=== PATIENT | female | born 1950 | race African-American/Black ===

== ENCOUNTER → 2016-11-05 | Outpatient (CLI) | payer BC ==
--- NOTE | 2016-11-10 07:12 | MM ---
Reason for exam: screening (asymptomatic). Last mammogram was performed 1 year and 1 month ago. History: Patient is postmenopausal. Family history of breast cancer in aunt at age 55. Physical Findings: A clinical breast exam by your physician is recommended on an annual basis and results should be correlated with mammographic findings. MG Screening Mammo w CAD Bilateral CC and MLO view(s) were taken. Prior study comparison: October 13, 2015, bilateral MG screening mammo w CAD. April 05, 2014, bilateral MG screening mammo w CAD. The breast tissue is heterogeneously dense. This may lower the sensitivity of mammography. No significant changes when compared with prior studies. ASSESSMENT: Benign, BI-RAD 2 RECOMMENDATION: Routine screening mammogram of both breasts in 1 year.
== END | disposition home or self-care (01) ==
LOC: RADMAMWWP 08:10
PROVIDERS: ATTEND Family Medicine
DX: Z12.31 Encounter for screening mammogram for malignant neoplasm of breast (principal)

== ENCOUNTER 2017-07-01 06:49 | Day surgery (SDC) | payer MEDICARE, BC ==
[2017-06-30 08:49] VITALS: BMI 26.6
[2017-07-01 07:16] VITALS: TEMP 97.8
[2017-07-01] MEDS ORDERED: LACTATED RINGERS 1,000 ML IV ONE ×2 (07:17)
[2017-07-01] MEDS ORDERED: PROPOFOL 10 MG/ML 20 ML VIAL IV ONE (07:22)
--- NOTE | 2017-07-01 07:41 | P.PCN ---
Date of Procedure: 07/01/17 Procedure(s) Performed: BRIEF HISTORY: Patient is a 67-year-old [place] -[place] female, scheduled for an elective colonoscopy as a part of screening for colorectal neoplasia. PROCEDURE PERFORMED: Colonoscopy. PREOPERATIVE DIAGNOSIS: Screening for colon cancer. IV sedation per Anesthesia. PROCEDURE: After informed consent was obtained, the patient, was brought into the endoscopy unit. IV sedation was administered by Anesthesia under continuous monitoring. Digital rectal examination was normal. Initially the Olympus CF- 160 flexible video colonoscope was then inserted in the rectum, gradually advanced into the cecum without any difficulty. Careful examination was performed as the scope was gradually being withdrawn. Ileocecal valve and the appendiceal orifice were visualized and appeared normal. Prep was excellent. Mucosa of the cecum, ascending colon, transverse colon, descending colon, sigmoid colon, and rectum appeared normal. Retroflexion was performed in the rectum and no lesions were seen. The patient tolerated the procedure well. IMPRESSION: Normal-appearing colon from rectum to cecum with no evidence of colorectal neoplasia . RECOMMENDATIONS: Findings of this examination were discussed with the patient as well as a family. She was advised to have a repeat screening colonoscopy in 10 years.
[2017-07-01 07:48] VITALS: RESP 16
[2017-07-01 07:57] LABS: Glucose,Whole Blood 105 mg/dL (75-99)
[2017-07-01 08:08] VITALS: BP 123/60; PULSE 80
== END 2017-07-01 08:31 | disposition home or self-care (01) ==
LOC: ORWHC2ENDO 06:49
PROVIDERS: ATTEND Internal Medicine Gastroenterology
DX: Z12.11 Encounter for screening for malignant neoplasm of colon (principal); I10 Essential (primary) hypertension; E78.5 Hyperlipidemia, unspecified; E11.9 Type 2 diabetes mellitus without complications; Z79.84 Long term (current) use of oral hypoglycemic drugs
CPT/HCPCS: J2704; G0121

== ENCOUNTER → 2018-01-30 | Outpatient (CLI) | payer MEDICARE ==
--- NOTE | 2018-01-31 14:45 | MM ---
Reason for exam: screening (asymptomatic). Last mammogram was performed 1 year and 3 months ago. History: Patient is postmenopausal. Family history of breast cancer in aunt at age 55. Took hormonal contraceptives for 15 years. Physical Findings: A clinical breast exam by your physician is recommended on an annual basis and results should be correlated with mammographic findings. MG 3D Screening Mammo W/Cad Bilateral CC and MLO view(s) were taken. Prior study comparison: November 05, 2016, bilateral MG screening mammo w CAD. October 13, 2015, bilateral MG screening mammo w CAD. The breast tissue is heterogeneously dense. This may lower the sensitivity of mammography. Stable vascular calcifications. There is no discrete abnormality. No significant changes when compared with prior studies. ASSESSMENT: Benign, BI-RAD 2 RECOMMENDATION: Routine screening mammogram of both breasts in 1 year.
== END | disposition home or self-care (01) ==
LOC: RADMAMWWP 07:36
PROVIDERS: ATTEND Family Medicine
DX: Z12.31 Encounter for screening mammogram for malignant neoplasm of breast (principal)
CPT/HCPCS: 77063; 77067

== ENCOUNTER → 2019-11-19 | Outpatient (CLI) | payer MEDICARE ==
--- NOTE | 2019-11-19 11:38 | BD ---
EXAMINATION TYPE: Axial Bone Density DATE OF EXAM: 11/19/2019 COMPARISON: DEXA 2016 CLINICAL HISTORY: Postmenopausal female Height: 5 FT 3 IN Weight: 171 FRAX RISK QUESTIONS: Alcohol (3 or more units per day): NO Family History (Parent hip fracture): NO Glucocorticoids (More than 3mos): NO (Ex: prednisone, prednisolone, methylprednisolone, dexamethasone, and hydrocortisone). History of Fracture in Adulthood: NO Secondary Osteoporosis: 1. Type 1 Diabetes: NO 2. Hyperthyroidism: NO 3. Menopause before 45: NO 4. Malnutrition: NO 5. Chronic liver disease: NO Rheumatoid Arthritis: NO Current Tobacco Use: NO RISK FACTORS HISTORY OF: Family History of Osteoporosis: NO Active: YES Postmenopausal woman: AROUND AGE 47 MEDICATIONS: Additional Medications: METFORMIN, VIT D Additional History: EXAM MEASUREMENTS: Bone mineral densitometry was performed using the Moblication System. Bone mineral density as measured about the Lumbar spine is: ----- L1-L4(G/cm2): 1.324 T Score Values are as follows: ----- L2: 1.4 ----- L3: 2.2 ----- L4: 0.8 ----- L1-L4: 1.2 Bone mineral density has: INCREASED 2.4 % since study of: 2016 Bone mineral density about the R hip (g/cm2): 0.909 Bone mineral density about the L hip (g/cm2): 0.902 T Score values are as follows: -----R Neck: -0.9 -----L Neck: -1.0 -----R Total: -0.9 -----L Total: -1.2 Bone mineral density has: DECREASED -4.0 % since study of: 2016 IMPRESSION: Osteopenia (T Score between -2.5 and -1) is now present in the left hip. There is slightly increased risk of fracture and the patient may be considered for treatment. Re-Screen 2-5 years. NOTE: T-SCORE=SD OF THE YOUNG ADULT MEAN.
--- NOTE | 2019-11-21 11:08 | MM ---
Reason for exam: screening (asymptomatic). Last mammogram was performed 1 year and 10 months ago. History: Patient is postmenopausal. Family history of breast cancer in aunt at age 55. Took hormonal contraceptives for 15 years. Physical Findings: A clinical breast exam by your physician is recommended on an annual basis and results should be correlated with mammographic findings. MG 3D Screening Mammo W/Cad Bilateral CC and MLO view(s) were taken. Prior study comparison: January 30, 2018, bilateral MG 3d screening mammo w/cad. November 05, 2016, bilateral MG screening mammo w CAD. The breast tissue is heterogeneously dense. This may lower the sensitivity of mammography. Benign vascular calcifications bilaterally. No significant changes when compared with prior studies. ASSESSMENT: Benign, BI-RAD 2 RECOMMENDATION: Routine screening mammogram of both breasts in 1 year.
== END | disposition home or self-care (01) ==
LOC: RADMAMWWP 08:27
PROVIDERS: ATTEND Family Medicine
DX: Z12.31 Encounter for screening mammogram for malignant neoplasm of breast (principal); M85.852 Other specified disorders of bone density and structure, left thigh; Z78.0 Asymptomatic menopausal state
CPT/HCPCS: 77063; 77067; 77080

== ENCOUNTER → 2021-10-09 | Outpatient (CLI) | payer MEDICARE ==
--- NOTE | 2021-10-12 10:50 | MM ---
Reason for Exam: Screening (asymptomatic). Last mammogram was performed 1 year(s) and 11 month(s) ago. Patient History: Menarche at age 15. First Full-Term at age 19. Postmenopausal. Patient used Hormonal Contraceptives for 15 years. Maternal aunt had breast cancer, age 55. Risk Values: Anna 5 year model risk: 1.2%. NCI Lifetime model risk: 3.9%. Prior Study Comparison: 11/05/2016 Bilateral Screening Mammogram, [facility]. 01/30/2018 Bilateral Screening Mammogram, [facility]. 11/19/2019 Bilateral Screening Mammogram, [facility]. Tissue Density: The breast tissue is heterogeneously dense. This may lower the sensitivity of mammography. Findings: Analyzed By CAD. Pattern appears stable. Focal asymmetry may be within the left upper breast with diminished parenchymal tissue density in this region. No suspicious tomographic or craniocaudal view changes identified. No suspicious groups of microcalcifications, spiculated or lobular masses, architectural distortion or other secondary signs of malignancy are mammographically apparent. Overall Assessment: Benign, BI-RAD 2 Management: Screening Mammogram of both breasts in 1 year. A negative mammogram report should not preclude additional follow up of suspicious palpable abnormalities. Patient should continue monthly self breast exam. A clinical breast exam by your physician is recommended on an annual basis and results should be correlated with mammographic findings. Electronically signed and approved by: Amador Pat D.O. Radiologis
== END | disposition home or self-care (01) ==
LOC: RADMAMWWP 10:09
PROVIDERS: ATTEND Family Medicine
DX: Z12.31 Encounter for screening mammogram for malignant neoplasm of breast (principal); Z78.0 Asymptomatic menopausal state; Z80.3 Family history of malignant neoplasm of breast
CPT/HCPCS: 77063; 77067

== ENCOUNTER → 2021-12-15 | Outpatient (CLI) | payer MEDICARE ==
--- NOTE | 2021-12-15 12:32 | BD ---
EXAMINATION TYPE: Axial Bone Density DATE OF EXAM: 12/15/2021 COMPARISON: NONE CLINICAL HISTORY: 71 years year old Female. ICD-10 CODE: Z78.0 ASYMPTOMATIC MENOPAUSAL STATE Height: 63 Weight: 196 FRAX RISK QUESTIONS: Secondary Osteoporosis: RISK FACTORS HISTORY OF: Postmenopausal woman: y MEDICATIONS: Additional Medications: diabetes, cholesterol Additional History: EXAM MEASUREMENTS: Bone mineral densitometry was performed using the [employer] System. Bone mineral density as measured about the Lumbar spine is: ----- L1-L4(G/cm2): 1.419 T Score Values are as follows: ----- L1: 0.1 ----- L2: 3.1 ----- L3: 3.5 ----- L4: 0.8 ----- L1-L4: 2.0 Bone mineral density has: Increased 11.9% since study of: 10/13/2015 Bone mineral density about the R hip (g/cm2): 0.896 Bone mineral density about the L hip (g/cm2): 0.875 T Score values are as follows: -----R Neck: -0.9 -----L Neck: -1.0 -----R Total: -0.9 -----L Total: -1.3 Bone mineral density has: Decreased -4.9% since study of: 10/13/2015 FRAX%s: The graph provided illustrates a 3.8% chance for a major osteoporotic fx and a 0.4% chance fo r the hips probability for fx in 10 years time. IMPRESSION: Osteopenia (T Score between -2.5 and -1), borderline. There is slightly increased risk of fracture and the patient may be considered for treatment. Re-Screen 2-5 years. NOTE: T-SCORE=SD OF THE YOUNG ADULT MEAN.
== END | disposition home or self-care (01) ==
LOC: RADBDWWP 10:17
PROVIDERS: ATTEND Family Medicine
DX: M85.89 Other specified disorders of bone density and structure, multiple sites (principal); Z78.0 Asymptomatic menopausal state
CPT/HCPCS: 77080

== ENCOUNTER → 2022-10-20 | Outpatient (CLI) | payer MEDICARE ==
--- NOTE | 2022-10-21 08:16 | XR ---
EXAMINATION TYPE: XR KUB DATE OF EXAM: 10/20/2022 COMPARISON: 04/19/2022 HISTORY: Bilateral renal stones TECHNIQUE: One view abdominal series FINDINGS: The osseous structures are intact. The bowel gas pattern is nonspecific. Osteitis pubis is intact. D egenerative changes of the spine and bilateral hip arthropathy. Calcifications in the pelvis which may be related to uterine fibroid. Right kidney: The remaining 3 calcifications overlying the right kidney mid to lower pole largest lulú suring 4 mm. Left kidney: Approximately 2 calcifications overlying the left kidney the largest were 0.6 mm. Vascular calcifications in pelvis. Calcification overlying the right sacrum is stable but indetermina te IMPRESSION: 1. Stable bilateral nephrolithiasis.
== END | disposition home or self-care (01) ==
LOC: RADXRMAIN 16:02
PROVIDERS: ATTEND Urology
DX: N20.0 Calculus of kidney (principal)
CPT/HCPCS: 74018

== ENCOUNTER 2023-05-12 06:24 | Day surgery (SDC) | payer MEDICARE ==
[~2023-05-12 06:24] MED LIST: ALPRAZolam 0.25 MG TAB PO PRN; ALPRAZolam 0.5 MG TAB PO PRN; ASPIRIN 325 MG TAB PO STA; NITROGLYCERIN SL TABS 0.4 MG TAB SUBLINGUAL PRN; SODIUM CHLORIDE 0.9% 1,000 ML in EMPTY BAG 1 BAG IV SCH
[2023-05-12 07:11] LABS: Glucose,Whole Blood 194 mg/dL (70-110)
[2023-05-12] MEDS: SODIUM CHLORIDE 0.9% 1,000 ML IV ONE (07:17)
[2023-05-12 07:18] LABS: Basophils % (A) 0 %; Eosinophils # (A) 0.2 k/uL (0-0.7); Eosinophils % (A) 3 %; HCT 39.1 % (34.0-46.0); HGB 13.6 gm/dL (11.4-16.0); Lymphocytes # (A) 1.9 k/uL (1.0-4.8); Lymphocytes % (A) 24 %; MCH 31.2 pg (25.0-35.0); MCHC 34.7 g/dL (31.0-37.0); Mean Platelet Volume 8.3; Monocytes # (A) 0.3 k/uL (0-1.0); Monocytes % (A) 4 %; Neutrophils % (A) 66 %; Platelet Count 256 k/uL (150-450); RBC 4.34 m/uL (3.80-5.40); RDW 13.7 % (11.5-15.5); WBC 7.6 k/uL (3.8-10.6)
[2023-05-12] MEDS ORDERED: HEPARIN SODIUM 1,000 UN/ML (10ML VL) ONE (07:22)
[2023-05-12] MEDS ORDERED: fentaNYL (PF) 50 MCG/ML 2 ML AMP ONE (07:22)
[2023-05-12] MEDS ORDERED: LIDOCAINE 1% INJ 10MG/ML (20 ML MDV) ONE (07:23)
[2023-05-12] MEDS ORDERED: VERAPAMIL 2.5 MG/ML 2 ML AMP ONE (07:23)
[2023-05-12 07:33] LABS: African American GFR (CKD) 89 (>60 ml/min/1.73 sqM); Anion Gap 7 mmol/L; Blood Urea Nitrogen 17 mg/dL (7-17); Calcium 9.4 mg/dL (8.4-10.2); Carbon Dioxide 25 mmol/L (22-30); Chloride 106 mmol/L (98-107); Glucose 160 mg/dL (74-99); Non-African American GFR(CKD) 77 (>60 ml/min/1.73 sqM); Sodium 138 mmol/L (137-145)
[2023-05-12] MEDS: LIDOCAINE 1% INJ 10MG/ML (30 ML VIAL-PF) SQ ONE (07:46)
[2023-05-12] MEDS: MIDAZOLAM 2 MG/2 ML VIAL IVP ONE (07:48)
[2023-05-12] MEDS: VERAPAMIL SYRINGE (5 MG/10 ML) INTRAARTER ONE (07:48)
[2023-05-12] MEDS: HEPARIN SODIUM 1,000 UN/ML (10ML VL) IVP ONE (07:50)
[2023-05-12 07:52] VITALS: RESP 16; TEMP 98
[2023-05-12 07:56] LABS: Potassium 5.3 mmol/L (3.5-5.1)
[2023-05-12] MEDS: IOPAMIDOL-370 100ML BTL INTRATHECA ONE (07:59)
[2023-05-12] MEDS ORDERED: RX INFO: IV CONTRAST WAS GIVEN 1 EACH MISC MISCELLANE PRN (08:16)
--- NOTE | 2023-05-12 08:19 | P.PCN ---
Date of Procedure: 05/12/23 Operative Findings: CARDIAC CATHETERIZATION PERFORMING PHYSICIAN: Noe Morgan MD, RPVI PROCEDURE PERFORMED: 1. Selective right and left coronary angiogram 2. Left heart catheterization 3. Ultrasound-guided access of the right radial artery INDICATION: Shortness of breath and abnormal myocardial perfusion imaging stress test in this patient who has multiple risk factors including diabetes COMPLICATION: None APPROACH: Right radial artery LEVEL OF SEDATION: Moderate with a sedation length of 13 minutes PROCEDURE DESCRIPTION: After obtaining an informed consent, the patient was brought to cardiac oil laboratory analyst. Local anesthesia was performed using lidocaine subcutaneously. The right radial artery was cannulated using Seldinger technique, the guidewire passed easily, following that we advanced a 5-Qatari sheath dilator assembly, the wire and dilator were removed and sheath was flushed. Following that, 2 mg of verapamil along with 5000 unit heparin were given. Selective right and left coronary angiogram using a 6-Qatari JR4 and JL 3.5 catheters. Following that we did left heart catheterization using 6-Qatari pigtail catheter. The procedure was completed there was no complication. SELECTIVE CORONARY ANGIOGRAM: The right coronary artery: Large-caliber vessel and a dominant vessel appears to be angiographically normal Left main: Is angiographically normal The left circumflex: Large-caliber vessel nondominant vessel and appears to be angiographically normal as well The left anterior descending artery: Large-caliber vessel. Is angiographically normal with gives rise into a diagonal branch which appears to be angiographically normal HEMODYNAMICS: The LVEDP was 13 mmHg with no significant gradient across aortic valve CONCLUSION: 1. Normal coronary angiogram 2. Normal left-sided filling pressure POSTPROCEDURE MANAGEMENT: Medical treatment
[2023-05-12] MEDS ORDERED: SODIUM CHLORIDE 0.9% 1,000 ML IV SCH (08:30)
[2023-05-12 14:37] VITALS: BP 126/60; PULSE 68
== END 2023-05-12 12:24 | disposition home or self-care (01) ==
LOC: CATHCVL 06:24
PROVIDERS: ATTEND Internal Medicine Interventional Cardiology
DX: I25.10 Atherosclerotic heart disease of native coronary artery without angina pectoris (principal); I10 Essential (primary) hypertension; E78.5 Hyperlipidemia, unspecified; E11.9 Type 2 diabetes mellitus without complications; J44.9 Chronic obstructive pulmonary disease, unspecified; Z82.49 Family history of ischemic heart disease and other diseases of the circulatory system; Z79.84 Long term (current) use of oral hypoglycemic drugs; Z79.899 Other long term (current) drug therapy
CPT/HCPCS: 93458; 76937; 80048; 85025; C1769; C1894; J2250; J2001; J1644; Q9967

== ENCOUNTER → 2023-07-05 | Outpatient (CLI) | payer MEDICARE ==
[2023-07-05 11:59] LABS: African American GFR (CKD) >90 (>60 ml/min/1.73 sqM); Anion Gap 6 mmol/L; Blood Urea Nitrogen 11 mg/dL (7-17); Calcium 9.5 mg/dL (8.4-10.2); Carbon Dioxide 29 mmol/L (22-30); Chloride 106 mmol/L (98-107); Glucose 146 mg/dL (74-99); Non-African American GFR(CKD) 81 (>60 ml/min/1.73 sqM); Potassium 3.9 mmol/L (3.5-5.1); Sodium 141 mmol/L (137-145)
== END | disposition home or self-care (01) ==
LOC: LABWHC1 10:54
PROVIDERS: ATTEND Internal Medicine
DX: R06.02 Shortness of breath (principal)
CPT/HCPCS: 36415; 80048; 85379

== ENCOUNTER → 2023-12-05 | Outpatient (CLI) | payer MEDICARE ==
--- NOTE | 2023-12-06 09:36 | MM ---
Reason for Exam: Screening (asymptomatic). Last screening mammogram was performed 12 month(s) ago. Patient History: Menarche at age 15. First Full-Term at age 19. Postmenopausal. Patient used Hormonal Contraceptives for 15 years. Maternal aunt had breast cancer, age 55. Maternal cousin had breast cancer, age 55. Risk Values: Anna 5 year model risk: 1.8%. NCI Lifetime model risk: 4.6%. Prior Study Comparison: 11/19/2019 Bilateral Screening Mammogram, [facility]. 10/09/2021 Bilateral MG 3D screening mammo w/cad, [facility]. 12/01/2022 Bilateral MG 3D screening mammo w/cad, [facility]. Tissue Density: The breasts are heterogeneously dense, which may obscure small masses. Findings: Analyzed By CAD. There is no suspicious group of microcalcifications or new suspicious mass in either breast. Overall Assessment: Benign, BI-RAD 2 Management: Screening Mammogram of both breasts in 1 year. . Patient should continue monthly self-breast exams. A clinical breast exam by your physician is recommended on an annual basis. This exam should not preclude additional follow-up of suspicious palpable abnormalities. Note on Anna scores and lifetime risk: 1. A Anna score greater than 3% is considered moderate risk. If this is the case, consider specialist referral to assess eligibility for a risk reducing agent. 2. If overall lifetime risk for the development of breast cancer is 20% or higher, the patient may qualify for future screening with alternating mammogram and breast MRI. [facility], , 12/06/2023 9:33 AM. Electronically signed and approved by: Lon Olivarez M.D. Radiologis
== END | disposition home or self-care (01) ==
LOC: RADMAMWWP 11:49
PROVIDERS: ATTEND Family Medicine
DX: Z12.31 Encounter for screening mammogram for malignant neoplasm of breast (principal); R92.333 Mammographic heterogeneous density, bilateral breasts; Z78.0 Asymptomatic menopausal state; Z80.3 Family history of malignant neoplasm of breast
CPT/HCPCS: 77063; 77067

== ENCOUNTER → 2023-12-19 | Outpatient (CLI) | payer MEDICARE ==
--- NOTE | 2023-12-19 10:20 | BD ---
EXAMINATION TYPE: Axial Bone Density DATE OF EXAM: 12/19/2023 CLINICAL HISTORY: 73 years old Female. ICD-10 CODE: Z78.0 ASYMP RAH STATE Height: 62" Weight: 175lbs FRAX RISK QUESTIONS: Alcohol (3 or more units per day): No Family History (Parent hip fracture): No Glucocorticoids (More than 3mos): No (Ex: prednisone, prednisolone, methylprednisolone, dexamethasone, and hydrocortisone). History of Fracture in Adulthood: No Secondary Osteoporosis: 1. Type 1 Diabetes: No 2. Hyperthyroidism: No 3. Menopause before 45: No 4. Malnutrition: No 5. Chronic liver disease: No Rheumatoid Arthritis: No Current Tobacco Use: No RISK FACTORS HISTORY OF: Hip Fracture (Right/Left): No Spine Fracture: No History of Wrist Fracture: No Surgery to Spine/Hip(right/left)/Wrist (right/left): No MEDICATIONS: Thyroid Medications: No Osteoporosis Medications: No EXAM MEASUREMENTS: Bone mineral densitometry was performed using the [employer] System. Bone mineral density as measured about the Lumbar spine is: ----- L1-L4(G/cm2): 1.462 T Score Values are as follows: ----- L1: -0.3 ----- L2: 2.8 ----- L3: 4.7 ----- L4: 2.1 ----- L1-L4: 2.3 Z Score Values are as follows: ----- L1: 0.3 ----- L2: 3.3 ----- L3: 5.2 ----- L4: 2.6 ----- L1-L4: 2.9 Bone mineral density has: increased 3.0% since study of: 12/15/2021 Bone mineral density about the R hip (g/cm2): 0.909 Bone mineral density about the L hip (g/cm2): 0.883 T Score values are as follows: -----R Neck: -0.9 -----L Neck: -0.8 -----R Total: -0.8 -----L Total: -1.0 Z Score values are as follows: -----R Neck: -0.3 -----L Neck: -0.3 -----R Total: -0.6 -----L Total: -0.8 Bone mineral density has: increased 3.5% since study of: 12/15/2021 FRAX%s: The graph provided illustrates a 3.7% chance for a major osteoporotic fx and a 0.4% chance fo r the hips probability for fx in 10 years time. IMPRESSION: Osteopenia (T Score between -2.5 and -1). There is slightly increased risk of fracture and the patient may be considered for treatment. Re-Screen 2-5 years. NOTE: T-SCORE=SD OF THE YOUNG ADULT MEAN. [facility], , 12/19/2023 10:17 AM
== END | disposition home or self-care (01) ==
LOC: RADBDWWP 09:22
PROVIDERS: ATTEND Family Medicine
DX: Z78.0 Asymptomatic menopausal state
CPT/HCPCS: 77080

== ENCOUNTER → 2024-09-26 | Outpatient (CLI) | payer MEDICARE ==
--- NOTE | 2024-09-26 15:47 | XR ---
EXAMINATION TYPE: XR KUB DATE OF EXAM: 09/26/2024 3:41 PM COMPARISON: 10/20/2022 CLINICAL INDICATION: Female, 74 years old with history of N20.0, R10.9; PHH, pain TECHNIQUE: One radiographic view of the abdomen was obtained. FINDINGS: Lung bases are clear. Scattered mild to moderate stool. No dilated small bowel. Bilateral renal calculi, approximately 3 on the right measuring up to 9 mm and at least one on the le ft measuring 7 mm. Pelvic phleboliths versus other pelvic calcifications remain unchanged compared to 10/20/2022. IMPRESSION: 1. Bilateral nephrolithiasis measuring up to 9 mm on the right and 7 mm on the left. 2. Nonspecific calcifications in the pelvis, probably phleboliths, unchanged in appearance from 2022. [facility], Workstation: [email or web address], 09/26/2024 3:45 PM
== END | disposition home or self-care (01) ==
LOC: RADXRMAIN 15:10
PROVIDERS: ATTEND Urology
DX: N20.0 Calculus of kidney (principal)
CPT/HCPCS: 74018